=== PATIENT | female | born 1955 | race African-American/Black ===

== ENCOUNTER → 2019-01-04 | Outpatient (CLI) | payer OTHER ==
[~2019-01-04] MED LIST: GADOBENATE DIMEGLUMINE 1 ML IV ONE; IOPAMIDOL 300 MG/ML 15ML VIAL IT ONE
--- NOTE | 2019-01-04 11:19 | Diagnostic Imaging Report ---
Left shoulder arthrogram. History: Left shoulder pain. Arthrogram requested for intra-articular injection of contrast for MRI. Aluminum Molder: Dr. Grier. Contrast: 0.1 cc of gadolinium mixed with 10 cc of saline, and 10 cc of Isovue 300. Medication: 5 cc of 1% Lidocaine without epinephrine. EBL: None Specimen: None. Fluoro time: 0.6 min. Dose: 3.9 mGy (ASHTYN) Technique: After informed consent was obtained, the patient's left shoulder was prepped and draped in a sterile fashion. The skin was anesthetized with lidocaine. Using fluoroscopic guidance, a 22-gauge spinal needle was advanced into the left shoulder joint space. The contrast mixture was injected. The needle was removed and the patient was sent to MRI for scanning. The patient tolerated procedure well without evidence of complication. IMPRESSION: Successful left shoulder arthrogram for MRI. Signed by: Antwon Grier on 01/04/2019 11:15 AM
--- NOTE | 2019-01-05 08:23 | Diagnostic Imaging Report ---
MRI of the left shoulder without contrast. History: Shoulder pain. Fall. Labral tear. Decreased range of motion. Comparison: Arthrogram from the same day Technique: Multiplanar multisequence MRI of the shoulder after the administration of intra-articular gadolinium contrast material Findings: Rotator cuff: Rotator cuff tendinosis with midsubstance degeneration and mild articular sided partial tearing involving the anterior fibers of the supraspinatus and infraspinatus tendons at the humeral insertion site. Additionally, there is a small full-thickness perforation involving the anterior fibers of the subscapularis tendon at the humeral insertion site best seen on axial image 7 and coronal image 8 and 9. The teres minor tendon is intact. Osseous acromion complex: Type II acromion with mild lateral downsloping. Moderate degenerative arthrosis at the acromioclavicular joint with undersurface spurring and narrowing of the supraspinatus tendon outlet. Mild subacromial/subdeltoid bursitis. Glenohumeral joint: Degeneration and fraying of the labrum. The humeral head is well-seated in the glenoid fossa. The articular cartilage surfaces are intact. A linear contrast material is seen filling the glenohumeral joint. Biceps tendon: The biceps tendon is intact. Other findings: Negative for muscle denervation or osseous fracture. Impression: Small full-thickness perforation involving the anterior fibers of the subscapularis tendon at the humeral insertion site. Rotator cuff tendinosis with midsubstance degeneration and mild articular sided partial tearing involving the anterior fibers of the supraspinatus and infraspinatus tendons at the humeral insertion site. Moderate degenerative arthrosis at the acromioclavicular joint with undersurface spurring and narrowing of the supraspinatus tendon outlet. Mild subacromial/subdeltoid bursitis. Degeneration and fraying of the labrum. No labral tear is seen. Signed by: Dr. Jesus Gage M.D. on 01/05/2019 8:20 AM
== END ==
LOC: DX 08:55
PROVIDERS: ATTEND Specialist
DX: S43.432A Superior glenoid labrum lesion of left shoulder, initial encounter (principal)
CPT/HCPCS: 23350; 73222; 77002; A9577; Q9967